=== PATIENT | female | born 1980 | race Caucasian/White ===

== ENCOUNTER 2018-11-08 11:02 | Day surgery (SDC) | payer OTHER ==
[~2018-11-08] VITALS: Ht 162.6 cm; Wt 142.0 kg
[~2018-11-08 11:02] MED LIST: ALBU90OI; ALBU90OI INH; Adipex-P37.5 M1 PO; BASAGLAR K100 UNIT/1 SC; GLIP5 PO; HYDCHL25 PO; LEVSOD50 PO; LOSARTAN POTASS25 MG PO; LOVA40 PO; METF500 PO; Naprosyn500 MG PO; Norco 10-325 T1 EACH PO; Omeprazole20 M1 PO; POTA10T PO; TOPI50 PO; VITAMIN D50000 UNIT PO; Veetids 500500 MG PO; Zocor20 MG PO
--- NOTE | 2018-11-08 11:46 | NUR ---
Ambulatory in Day Surgery History, Chart, Medications and Allergies reviewed before start of procedure.LUNGS DISTANT. SATS>90% ON RA. NO NOTED SOB. DUONEB GIVEN PER DR. GARDNER ORDER. Patient confirms NPO status and agrees with scheduled surgery. Patient States Post-Procedure ride home has been arranged.
--- NOTE | 2018-11-08 12:07 | NUR ---
11/08/18 1207 Alice Lopez History, Chart, Medications and Allergies reviewed before start of procedure. MONITOR INTACT WITH CONTINUOUS PULSE OXIMETRY AND INTERMITTENT BP.
--- NOTE | 2018-11-08 12:26 | NUR ---
RECIEVED PATIENT AND REPORT VSS
--- NOTE | 2018-11-08 12:46 | NUR ---
DISCHARGE INSTRUCITONS GONE OVER WITH AND ALL QUESTIONS ANSWERED. PATIENT DISCHARGED AFTER IV REMOVED AND LEFT VIA WHEEL CHAIR.
== END 2018-11-08 22:47 | disposition home or self-care (01) ==
LOC: ORSCMMR 11:02
PROVIDERS: Internal Medicine Gastroenterology
PROC: 0DB68ZX Excision of Stomach, Via Natural or Artificial Opening Endoscopic, Diagnostic (ICD-10-PCS; principal; 2018-11-08 12:45)
PROC: 0DB98ZX Excision of Duodenum, Via Natural or Artificial Opening Endoscopic, Diagnostic (ICD-10-PCS; principal; 2018-11-08 12:45)
DX: Z01.818 Encounter for other preprocedural examination (principal); Z80.1 Family history of malignant neoplasm of trachea, bronchus and lung; K29.70 Gastritis, unspecified, without bleeding; I10 Essential (primary) hypertension; E11.9 Type 2 diabetes mellitus without complications; J45.909 Unspecified asthma, uncomplicated; E66.01 Morbid (severe) obesity due to excess calories; Z68.43 Body mass index [BMI] 50.0-59.9, adult; Z79.4 Long term (current) use of insulin; Z79.899 Other long term (current) drug therapy
CPT/HCPCS: 82947; 88305; 88342; J2250; J2704; J7120

== ENCOUNTER → 2021-05-18 | Outpatient (CLI) | payer OTHER ==
[2021-05-18 08:24] LABS: BASOPHILS ABSOLUTE AUTO 0.03 K/mm3 (0.00-0.23); BASOPHILS PERCENT AUTO 0 % (0-2); EOSINOPHILS ABSOLUTE AUTO 0.12 K/mm3 (0.00-0.68); EOSINOPHILS PERCENT AUTO 2 % (0-6); Hematocrit 41.9 % (33.0-51.0); Hemoglobin 14.4 g/dL (11.5-16.0); IMMATURE GRAN ABSOLUTE AUTO 0.03 K/mm3 (0.00-0.10); IMMATURE GRAN PERCENT AUTO 0 % (0-1); LYMPHOCYTES ABSOLUTE AUTO 3.27 K/mm3 (0.84-5.20); LYMPHOCYTES PERCENT AUTO 44 % (21-46); MONOCYTES ABSOLUTE AUTO 0.42 K/mm3 (0.16-1.47); MONOCYTES PERCENT AUTO 6 % (4-13); Mean Corpuscular HGB 28.6 pg (26.0-34.0); Mean Corpuscular HGB Conc 34.4 g/dL (31.5-36.5); Mean Corpuscular Volume 83 fL (80-100); Mean Platelet Volume 9.4 fL (9.1-12.4); NEUTROPHILS ABSOLUTE AUTO 3.58 K/mm3 (1.96-9.15); NEUTROPHILS PERCENT AUTO 48 % (41-73); Platelet Count 373 K/mm3 (150-400); RDW Coefficient Variation 12.6 % (11.7-14.2); RDW Standard Deviation 37.7 fL (35.1-46.3); Red Blood Cell Count 5.04 M/mm3 (3.80-5.20); White Blood Cell Count 7.45 K/mm3 (4.00-11.30)
[2021-05-18 08:46] LABS: Alanine Aminotransfer (ALT/SGP 44 U/L (12-78); Albumin, Blood 3.8 g/dL (3.4-5.0); Albumin/Globulin Ratio 1.2 (0.8-1.8); Alk Phos 87 U/L (40-126); Anion Gap 11 mmol/L (6-16); Aspartate Aminotrans (AST/SGOT 36 U/L (12-37); Bilirubin, Total 0.5 mg/dL (0.1-1.0); Blood Urea Nitrogen 10 mg/dL (8-24); Bun/Creatinine Ratio 14.3 (12.0-20.0); CO2, Blood 26 mmol/L (21-32); Calcium, Blood 8.9 mg/dL (8.5-10.1); Chloride, Blood 102 mmol/L (98-108); Globulin, Blood 3.1 g/dL (2.2-4.0); Glomerular Filtration Rate >60 (60-); Glucose, Blood 269 mg/dL (70-99); Sodium, Blood 139 mmol/L (136-145); Thyroid Stimulating Hormone 2.079 uIU/mL (0.360-4.800); Total Protein, Blood 6.9 g/dL (6.4-8.2)
[2021-05-18 08:47] LABS: Troponin I <0.017 ng/mL (0.000-0.040)
== END | disposition home or self-care (01) ==
LOC: LAB 08:16 → LAB SHORT 08:16
PROVIDERS: Chiropractor
DX: E11.9 Type 2 diabetes mellitus without complications (principal); R07.81 Pleurodynia; R53.83 Other fatigue
CPT/HCPCS: 80053; 83036; 84443; 84484; 85025; 85379

== ENCOUNTER → 2022-06-22 | Outpatient (CLI) | payer OTHER | LOC: LAB SHORT 09:15 → PLD 09:15 | DX: L60.2 Onychogryphosis (principal); B35.1 Tinea unguium | CPT/HCPCS: 88305; 88312 ==

== ENCOUNTER 2022-12-07 06:38 | Day surgery (SDC) | payer OTHER ==
[~2022-12-07] VITALS: Ht 160 cm; Wt 124.4 kg
[2022-12-07] MEDS ORDERED: LEVONOR-ETH ES1 EAC5 (07:00)
[2022-12-07] MEDS ORDERED: Crestor40 MG (07:01)
[2022-12-07] MEDS ORDERED: ALLERCLEAR10 MG (07:01)
--- NOTE | 2022-12-07 07:34 | NUR ---
12/07/22 0734 Meenu Duran PT TOOK SUTAB FOR BOWEL PREP. TWO ATTEMPTS AT IV. FIRST ATTEMPT IN R WRIST INFILTRATED. SECOND ATTEMPT IN R FOREARM SUCESSFUL.
[2022-12-07 09:08] VITALS: BP 122/97
--- NOTE | 2022-12-07 09:15 | NUR ---
[facility]
== END 2022-12-07 09:20 | disposition home or self-care (01) ==
LOC: ORSCSDS 06:38
PROVIDERS: Surgery
PROC: 0DBM8ZX Excision of Descending Colon, Via Natural or Artificial Opening Endoscopic, Diagnostic (ICD-10-PCS; principal; 2022-12-07 08:00)
PROC: 0DBK8ZX Excision of Ascending Colon, Via Natural or Artificial Opening Endoscopic, Diagnostic (ICD-10-PCS; principal; 2022-12-07 08:00)
PROC: 0DBH8ZX Excision of Cecum, Via Natural or Artificial Opening Endoscopic, Diagnostic (ICD-10-PCS; principal; 2022-12-07 08:00)
PROC: 0DBL8ZX Excision of Transverse Colon, Via Natural or Artificial Opening Endoscopic, Diagnostic (ICD-10-PCS; principal; 2022-12-07 08:00)
DX: Z12.11 Encounter for screening for malignant neoplasm of colon (principal); Z80.0 Family history of malignant neoplasm of digestive organs; D12.0 Benign neoplasm of cecum; D12.2 Benign neoplasm of ascending colon; D12.3 Benign neoplasm of transverse colon; K63.5 Polyp of colon; I10 Essential (primary) hypertension; E78.5 Hyperlipidemia, unspecified; E11.9 Type 2 diabetes mellitus without complications; E66.01 Morbid (severe) obesity due to excess calories; Z68.42 Body mass index [BMI] 45.0-49.9, adult; Z79.84 Long term (current) use of oral hypoglycemic drugs; Z79.4 Long term (current) use of insulin; J45.909 Unspecified asthma, uncomplicated; Z87.891 Personal history of nicotine dependence
CPT/HCPCS: 82947; 88305; J2250; J2704; J7120

== ENCOUNTER → 2023-06-05 | Outpatient (CLI) | payer OTHER ==
[~2023-06-05] MED LIST changes: +ALLERCLEAR10 MG; +Crestor40 MG; +LEVONOR-ETH ES1 EAC5
== END ==
LOC: LAB 09:43 → LAB SHORT 09:43
DX: R31.9 Hematuria, unspecified (principal)
CPT/HCPCS: 87077; 87086; 87186

== ENCOUNTER → 2023-06-05 | Outpatient (CLI) | payer OTHER ==
[2023-06-05 08:15] LABS: BASOPHILS ABSOLUTE AUTO 0.03 K/mm3 (0.00-0.23); BASOPHILS PERCENT AUTO 0 % (0-2); EOSINOPHILS ABSOLUTE AUTO 0.16 K/mm3 (0.00-0.68); EOSINOPHILS PERCENT AUTO 2 % (0-6); Hematocrit 45.2 % (33.0-51.0); Hemoglobin 15.6 g/dL (11.5-16.0); IMMATURE GRAN ABSOLUTE AUTO 0.02 K/mm3 (0.00-0.10); IMMATURE GRAN PERCENT AUTO 0 % (0-1); LYMPHOCYTES PERCENT AUTO 35 % (21-46); MONOCYTES ABSOLUTE AUTO 0.39 K/mm3 (0.16-1.47); MONOCYTES PERCENT AUTO 5 % (4-13); Mean Corpuscular HGB 29.1 pg (26.0-34.0); Mean Corpuscular HGB Conc 34.5 g/dL (31.5-36.5); Mean Corpuscular Volume 84 fL (80-100); Mean Platelet Volume 9.5 fL (9.1-12.4); NEUTROPHILS PERCENT AUTO 58 % (41-73); Platelet Count 390 K/mm3 (150-400); RDW Coefficient Variation 13.1 % (11.7-14.2); RDW Standard Deviation 39.8 fL (35.1-46.3); Red Blood Cell Count 5.37 M/mm3 (3.80-5.20)
[2023-06-05 08:57] LABS: Albumin, Blood 3.6 g/dL (3.4-5.0); Albumin/Globulin Ratio 0.9 (0.8-1.8); Bilirubin, Total 0.5 mg/dL (0.1-1.0); Bun/Creatinine Ratio 12.6 (12.0-20.0); Creatinine, Blood 0.56 mg/dL (0.40-1.00); Globulin, Blood 3.9 g/dL (2.2-4.0); Potassium, Blood 3.5 mmol/L (3.5-5.5); Total Protein, Blood 7.5 g/dL (6.4-8.2)
== END | disposition home or self-care (01) ==
LOC: LAB 08:03 → LAB SHORT 08:03
PROVIDERS: Physician Assistant
DX: R10.12 Left upper quadrant pain (principal)
CPT/HCPCS: 80053; 83690; 85025

== ENCOUNTER 2024-02-21 08:07 | Day surgery (SDC) | payer OTHER ==
[2024-02-21] VITALS (10 sets, daily range): BP systolic 106–164; BP diastolic 70–104
[~2024-02-21] VITALS: Ht 157.5 cm; Wt 115.4 kg
[~2024-02-21 08:07] MED LIST changes: +Lactated Ringer's 1,000 ML IV SCH; +TRULICITY1.5 MG/0.1 SC
[2024-02-21] MEDS ORDERED: Cyclobenzaprine5 MG PO (08:18)
[2024-02-21] MEDS ORDERED: FentaNYL Citrate 50 MCG/ML 2 ML Injection ONE ×2 (08:30→10:47)
[2024-02-21] MEDS ORDERED: propofoL 20 ML IV ONE (08:30)
[2024-02-21] MEDS ORDERED: Ondansetron HCl 2 MG / ML 2ML Vial ONE (08:31)
[2024-02-21] MEDS ORDERED: Ketorolac Tromethamine 30mg Vial ONE (08:31)
[2024-02-21] MEDS ORDERED: Dexamethasone Sod Phos 10 MG/ML 1ML VIAL ONE (08:31)
[2024-02-21] MEDS ORDERED: Lidocaine HCl 1% 5 ML SYR INJ ONE (08:35)
[2024-02-21] MEDS ORDERED: Midazolam HCl 1MG / ML 2ML Vial IV PRN (08:35)
[2024-02-21] MEDS ORDERED: Bupivacaine 0.5% HCl 5 MG/ML 30MLVIAL ONE (08:42)
--- NOTE | 2024-02-21 08:44 | NUR ---
Ambulatory in Day Surgery. History, Chart, Medications and Allergies reviewed before start of procedure. Pre-Op teaching done. Pt verbalizes understanding. Patient States Post-Procedure ride home has been arranged.
[2024-02-21] MEDS ORDERED: Metoclopramide HCl 5MG / ML 2ML Vial ONE (10:44)
[2024-02-21] MEDS ORDERED: HYDROcodone 5-APAP 325 TAB PO PRN (10:45)
--- NOTE | 2024-02-21 11:07 | NUR ---
PT TO DAY SURGERY STEP DOWN FROM PACU; BEDSIDE REPORT RECEIVED. PT HAD LEFT FLANK MASS REMOVED. PT IS AWAKE AND ORIENTED; BUT SLEEPY. ABLE TO MOVE SELF IN BED. VSS. NO COMPLAINTS. PT HAS INCISION ON LEFT FLANK THAT IS COVERED WITH TEGADERM AND IS C/D/I. PT ALSO HAS NORMA DRAIN THAT IS DRAINING SEROSANGUINOUS FLUID. PT DENIES PAIN.
--- NOTE | 2024-02-21 11:37 | NUR ---
PT TOLERATING PO FLUIDS. Discharge instructions reviewed with patient. Patient verbalizes understanding. Copy given to patient to take home. Home care instructions for NORMA drain given to pt and pt states an understanding on how to empty and record and will bring sheet to post op appt. Patient States Post-Procedure ride home has been arranged.
--- NOTE | 2024-02-21 11:45 | NUR ---
ICE PACK TO PT INCISION. INCISION REMAINS C/D/I
--- NOTE | 2024-02-21 11:50 | NUR ---
Patient up to Ambulate independently. Gait steady. Discharged via wheelchair to private car for ride home.
== END 2024-02-21 11:53 | disposition home or self-care (01) ==
LOC: ORSCMMR 08:07 → ORD 09:30 → ORSCMMR 09:30
PROVIDERS: Surgery
PROC: 0JB80ZX Excision of Abdomen Subcutaneous Tissue and Fascia, Open Approach, Diagnostic (ICD-10-PCS; principal; 2024-02-21 09:30)
PROC: 0HB6XZZ Excision of Back Skin, External Approach (ICD-10-PCS; principal; 2024-02-21 09:30)
DX: R22.2 Localized swelling, mass and lump, trunk (principal); E11.9 Type 2 diabetes mellitus without complications; I10 Essential (primary) hypertension; K21.9 Gastro-esophageal reflux disease without esophagitis; J45.909 Unspecified asthma, uncomplicated; F41.9 Anxiety disorder, unspecified; F32.A Depression, unspecified; E78.5 Hyperlipidemia, unspecified; E66.9 Obesity, unspecified; Z68.42 Body mass index [BMI] 45.0-49.9, adult; Z87.891 Personal history of nicotine dependence; Z79.85 Long-term (current) use of injectable non-insulin antidiabetic drugs; Z79.899 Other long term (current) drug therapy
CPT/HCPCS: 82947; 88304; J1100; J1885; J2250; J2405; J2704; J2765; J3010; J7120

== ENCOUNTER 2024-03-06 08:49 | Day surgery (SDC) | payer OTHER ==
[~2024-03-06] VITALS: Ht 160 cm; Wt 114.5 kg
[~2024-03-06 08:49] MED LIST changes: +Cyclobenzaprine5 MG PO; +Lactated Ringer's 1,000 ML IV ONE; -Lactated Ringer's 1,000 ML IV SCH
[2024-03-06] MEDS ORDERED: STEGLATRO5 MG (09:07)
[2024-03-06] MEDS ORDERED: CYCL10 (09:11)
[2024-03-06] MEDS ORDERED: Lactated Ringer's 1,000 ML IV ONE (10:08)
[2024-03-06] MEDS ORDERED: propofoL 60 ML IV ONE (10:59)
[2024-03-06] MEDS ORDERED: propofoL 20 ML IV ONE (11:06)
[2024-03-06 15:35] VITALS: BP 128/93
== END 2024-03-06 11:55 | disposition home or self-care (01) ==
LOC: ORSCSDS 08:49
PROVIDERS: Surgery
PROC: 0DBL8ZX Excision of Transverse Colon, Via Natural or Artificial Opening Endoscopic, Diagnostic (ICD-10-PCS; principal; 2024-03-06 10:15)
DX: K63.5 Polyp of colon (principal); D12.3 Benign neoplasm of transverse colon; Z80.0 Family history of malignant neoplasm of digestive organs; E11.9 Type 2 diabetes mellitus without complications; F41.9 Anxiety disorder, unspecified; I10 Essential (primary) hypertension; E78.5 Hyperlipidemia, unspecified; K21.9 Gastro-esophageal reflux disease without esophagitis; F32.A Depression, unspecified; Z87.891 Personal history of nicotine dependence; Z79.85 Long-term (current) use of injectable non-insulin antidiabetic drugs; Z79.899 Other long term (current) drug therapy
CPT/HCPCS: 82947; 88305; J2704; J7120